=== PATIENT | female | born 1980 | race Two or more races ===

== ENCOUNTER 2018-01-09 18:16 | Emergency (ER) | payer MEDICAID ==
[~2018-01-09] VITALS: Ht 167.6 cm; Wt 77.1 kg
[2018-01-09 18:33] VITALS: Ht 167.6 cm; Wt 77.1 kg
[2018-01-09 20:16] VITALS: BP 128/80
== END 2018-01-09 20:05 | disposition home or self-care (01) ==
LOC: ED 18:16
DX: S16.1XXA Strain of muscle, fascia and tendon at neck level, initial encounter (principal); Z88.1 Allergy status to other antibiotic agents; Z88.8 Allergy status to other drugs, medicaments and biological substances; V43.62XA Car passenger injured in collision with other type car in traffic accident, initial encounter; Y93.I9 Activity, other involving external motion; Y92.89 Other specified places as the place of occurrence of the external cause; Y99.8 Other external cause status